=== PATIENT | female | born 1980 | race African-American/Black ===

== ENCOUNTER 2021-01-12 08:33 | Emergency (ER) | payer MEDICAID ==
[~2021-01-12] VITALS: Ht 170.2 cm; Wt 95.0 kg
[2021-01-12 08:52] VITALS: BP 155/88
--- NOTE | 2021-01-12 10:36 | RAD ---
EXAM: XR CHEST 1V 01/12/2021 10:17 AM CLINICAL INDICATION: Cough COMPARISON: None TECHNIQUE: AP upright view of the chest FINDINGS: The heart and mediastinum are normal. Lungs are well-expanded and clear. No consolidatio n, pleural effusion, or pneumothorax. Pulmonary vascularity is normal. The thoracic skeleton is int act. IMPRESSION: Normal chest radiograph. Electronically signed by: Elise Camacho MD (01/12/2021 10:33 AM) [id number]
[2021-01-12] MEDS ORDERED: BENZ100C PO (10:55)
--- NOTE | 2021-01-12 10:55 | ED.ADGEN ---
Past Medical History Past Medical History: Other Additional Past Medical Histor: ABCESS IN MOUTH Past Surgical History: Cholecystectomy Smoking Status: Never Smoker Alcohol Use: None General Adult EDM: Chief Complaint: Toothache HPI: HPI: Patient is a 40-year-old female with multiple complaints. Patient's main complaint today is that her left lower molar is hurting her. She states that this started last Saturday and has been constant. She has not tried to take anything at home. She has tried to call a dentist but they are unable to get her in. She also has had a cough for the last week. She states she did have a Covid test which was negative. She is requesting something for the cough. She denies any kind of fever, chest pain, URI symptoms, abdominal pain, nausea, vomiting. She has not noticed any, swelling around the tooth. She has had previous work done on this tooth. Review of Systems: Review of Systems: Complete ROS is negative unless otherwise documented in HPI Current Medications: Current Medications Medications (Trade) Dose Ordered Sig/Ronel Start Time Stop Time Status Last Admin Dose Admin Benzonatate (Tessalon Perle) 100 mg 1X ONCE 01/12/21 10:00 01/12/21 10:01 DC 01/12/21 10:58 100 MG Bupivacaine HCl (Sensorcaine Mpf 0.5%) 30 ml 1X ONCE 01/12/21 09:30 01/12/21 09:31 DC 01/12/21 10:59 30 ML Allergies: Allergies: Allergies Coded Allergies Type Severity Reaction Last Updated Verified No Known Drug Allergies 01/12/21 No Physical Exam: PE: General: Awake, alert, NAD. Well Nourished, well hydrated. Cooperative HEENT: Atraumatic, EOMI, PERRL, airway patent, moist oral mucosa, poor dentition, left back molar with large metal filling and broken tooth on the medial side Neck: Supple, trachea midline Respiratory: CTA bilaterally, normal effort, no wheezing/crackles CV: RRR, no murmur, cap refill <2 GI: Soft, nondistended, nontender, no masses MSK: No obvious deformities Skin: Warm, dry, intact Neuro: A&O x3, speech NL, sensory and motor grossly intact, no focal deficits Psych: Normal affect, normal mood, not suicidal or homicidal Current Patient Data: Vital Signs: Vital Signs Date Time Temp Pulse Resp B/P (MAP) Pulse Ox O2 Delivery O2 Flow Rate FiO2 01/12/21 08:52 97.6 85 18 155/88 (110) 98 Room Air 97.6 EKG: EKG: [] Heart Score: C/O Chest Pain: N/A Risk Factors: Risk Factors: DM, Current or recent (<one month) smoker, HTN, HLP, family history of CAD, obesity. Risk Scores: Score 0 - 3: 2.5% MACE over next 6 weeks - Discharge Home Score 4 - 6: 20.3% MACE over next 6 weeks - Admit for Clinical Observation Score 7 - 10: 72.7% MACE over next 6 weeks - Early Invasive Strategies Radiology/Procedures: Radiology/Procedures: [] Course & Med Decision Making: Course & Med Decision Making Pertinent Labs and Imaging studies reviewed. (See chart for details) Patient is 40-year-old female presents to the emergency room complaining of left lower tooth pain. Patient appears to have a fractured tooth which is likely the cause of her pain. She does not appear to have an infection. There is no swelling or erythema around the tooth. Dental block was done with bupivacaine. Patient tolerated this well and had significant reduction in pain. I did discuss with her that is very important that she follows up in dental clinic. I gave her a list of [facility] based dental clinics in the area. Of note patient also has a cough. She was tested for Covid and was negative. Chest x-ray was done and is negative. Patient was given Tessalon for cough. Patient's test results and vitals while in the ED were fully reviewed and discussed with the patient. Patient is stable and at this time does not need admission to the hospital. We have discussed strict return precautions and the importance of following up with their Primary Care Physician. Patient stated understanding and was given an opportunity to ask any questions. Patient is in agreement with plan. Dragon Disclaimer: Dragon Disclaimer: This electronic medical record was generated, in whole or in part, using a voice recognition dictation system. PROCEDURE Procedure Dental Block Procedure performed by Dr. Bryon Colindres MD Nerve block performed: Buccal block Bupivacaine 2% for a total of 1.5 mils Patient tolerated procedure well without any complications Departure Departure Impression: Primary Impression: Broken tooth Additional Impression: Cough Disposition: 01 HOME / SELF CARE / HOMELESS Condition: STABLE Referrals: NO PCP (PCP) Patient Instructions: Dental Fracture Scripts Benzonatate (TESSALON PERLE) 100 Mg Capsule 1 CAP PO TID for cough, #21 CAP Prov: BRYON COLINDRES MD 01/12/21 Problem Qualifiers BRYON COLINDRES MD Jan 12, 2021 10:55
[2021-01-12] MEDS: BENZONATATE 100 MG CAPSULE. PO ONE (10:58)
[2021-01-12] MEDS: BUPIVACAINE MPF 0.5% 30 ML VIAL. INJ ONE (10:59)
== END 2021-01-12 11:00 | disposition home or self-care (01) ==
LOC: ER 08:33
DX: S02.5XXA Fracture of tooth (traumatic), initial encounter for closed fracture (principal); R05 Cough; K08.89 Other specified disorders of teeth and supporting structures; Z98.890 Other specified postprocedural states; Z90.49 Acquired absence of other specified parts of digestive tract; X58.XXXA Exposure to other specified factors, initial encounter; Y93.89 Activity, other specified; Y92.89 Other specified places as the place of occurrence of the external cause; Y99.8 Other external cause status
CPT/HCPCS: 64400; 71045; 99284; J3490